=== PATIENT | female | born 1980 | race Caucasian/White ===

== ENCOUNTER 2025-06-15 13:31 | Emergency (ER) | payer OTHER, SELFPAY ==
[2025-06-15 13:37] VITALS: BP 139/76
[2025-06-15 14:00] VITALS: BP 138/88
--- NOTE | 2025-06-15 14:19 | ED.GENMED ---
History of Present Illness
General
Chief Complaint: Change in Mental Status
Source: patient
Exam Limitations: none
Time Seen by Provider: 06/15/25 14:11
History of Present Illness
History of Present Illness:
See MDM
Past History
Past History
ED Past Medical History: Asthma, HTN, Hypercholesterolemia, Psychiatric (anxiety, pseudoseizures, bipolar disorder, movement disorder) and Other (Irritable bowel syndrome, migraine headaches, kidney stones); Negative CAD, Cancer or CHF
ED Past Surgical History: Gynecological (Tubal ligation, breast reduction), Tonsilectomy and Other (abd cellulits surgey)
Social History
Tobacco: Smoker
Alcohol: None
Drug: None
Living: with family
Employment: Not employed
Family History
Family History: Hypertension
Phy Exam
Physical Exam
Physical Exam:
See MDM
Course
Orders/Labs/Results
Orders:
Orders
06/15/25 14:18
Diphenhydramine [Benadryl] 12.5 mg IV NOW STA
Haloperidol Lactate [Haldol] 2 mg IM NOW STA
06/15/25 14:19
Complete Blood Count/With Diff Urgent
Comprehensive Metabolic Panel Urgent
Magnesium Urgent
06/15/25 14:23
Electrocardiogram (*1) Urgent
Reason for Study: QTc Monitoring
EKG- Treatment ONCE
Abnormal Lab Results
06/15/25
14:19
Hgb 8.1 L g/dL
(12.0-16.0)
Hct 29.6 L %
(37.0-47.0)
MCV 61.3 L fL
(81.0-99.0)
MCH 16.8 L pg
(27.0-31.0)
MCHC 27.4 L g/dL
(33.0-37.0)
RDW 24.3 H %
(11.5-14.5)
Absolute Lymphs (auto) 0.9 L 10^3/uL
(1.2-3.4)
Neutrophils % 81.1 H %
(42.2-75.2)
Lymphocytes % 12.9 L %
(20.5-51.1)
06/15/25 14:19
06/15/25 14:19
Vital Signs
Initial and Last Documented VS:
Initial Vital Signs
Temp
98.4 F
06/15/25 13:34
Last Documented Vital Signs
Temp Pulse Resp BP Pulse Ox
98.4 F 98 17 139/81 100
06/15/25 13:34 06/15/25 16:00 06/15/25 16:00 06/15/25 16:00 06/15/25 16:00
MDM/Problems Addressed
Differential Diagnosis Includes:
Note:
CHIEF COMPLAINT(S)
Muscle cramps and neck tremors.
HISTORY OF PRESENT ILLNESS
The patient is a 44-year-old female who presents with complaints of muscle cramping and neck tremors. Patient is coming from [facility]. This issue has been persistent for approximately two years. The patient reports that
her muscles cramp around the neck, which then start shaking and remain tense for an extended period. The patient has not been taking any specific medications to address these symptoms; however, she notes some relief with the administration of
Haldol, particularly in shot form. She also mentions random triggers for her symptoms despite consistent medication timings. Today, she experienced similar symptoms, prompting her visit. Patient states she has had negative workup in the past and
believes that a trigger is not receiving her routine medications and time at nursing home.
PHYSICAL EXAM
General: Alert, no acute distress.
Skin: Warm, dry.
Head: Normocephalic, atraumatic
Neck: Appears supple, trachea midline.
Eyes, Ears, Nose, Mouth, and Throat: Dry mucous membranes
Cardiovascular: No signs of cyanosis. Mild tachycardia
Respiratory: Respirations are non-labored.
Abdomen: Non-distended
Musculoskeletal: No deformities
Neurological: No focal neurological deficit observed. Patient appears tremulous
Psychiatric: Mildly anxious
PLAN
- Administer 12.5 mg of diphenhydramine (Benadryl) intravenously to mitigate potential drowsy effects.
- Administer Haldol in an injectable form intramuscularly.
- Conduct basic blood work to rule out electrolyte imbalances that may contribute to cramping.
- Continue fluids started by EMS
DIFFERENTIAL DIAGNOSIS
The Differential Diagnosis includes, in no particular order and is not limited to:
- Muscle contractions
- Cervical dystonia
- Hypocalcemia
- Hypokalemia
- Hyperthyroidism
- Tremors
- Electrolyte imbalance
- Neurological disorder
- Tardive dyskinesia
- Drug-induced movement disorder
SUMMARY OF ENCOUNTER
The patient presented to the emergency department with a two-year history of muscle cramping and neck tremors, exacerbated by inconsistent medication administration. The symptom manifestations are unpredictable, and todays episode prompted the
visit. Management focused on administering medications and conducting basic blood work for further investigation.
EMERGENCY TREATMENTS ADMINISTERED
- 12.5 mg of diphenhydramine (Benadryl) administered intravenously.
- Haldol administered in an injectable form intramuscularly.
FOLLOW-UP INSTRUCTIONS
Follow-up as necessary depending on lab results and symptom persistence.
MEDICAL DECISION MAKING
-Complexity of Data Reviewed: Chronic conditions affecting care with probable electrolyte imbalance, possible dystonia, and medication administration challenges over the past two years.
-Data:
Category 1:
- Basic lab work ordered to rule out electrolyte imbalances contributing to muscle symptoms.
-Risk:
- Prescription medication was administered as a therapeutic measure and to assess symptom reduction.
DIAGNOSIS
- Cervical dystonia (ICD-10: G24.3)
- Muscle spasm (ICD-10: M62.830)
- Tremor (ICD-10: R25.1)
CARE-UPDATE
06/15/25 - 14:53
Patients hemoglobin level is 8.1 g/dL, indicating anemia. Patient acknowledges awareness of this condition and prior discussions about potential need for hysterectomy as part of future management. Previous evaluations for anemia have been conducted.
Further monitoring and follow-up are required to assess current status and possible surgical intervention timing.
SUMMARY OF ENCOUNTER
The patient presented with muscle cramps and neck tremors attributed to pseudo-seizure activity. Having not been managed with consistent medication use, she requested haloperidol (Haldol) and diphenhydramine (Benadryl). The patient reported
improvement after receiving diphenhydramine intravenously and haloperidol intramuscularly. Extensive review of the patients condition revealed no significant electrolyte abnormalities. The patient was stabilized and deemed fit for discharge. Anemia
monitoring and re-check were discussed.
DISPOSITION
Discharge to nursing home.
ASSESSMENT
The patient appears to have symptoms consistent with cervical dystonia and muscle spasms associated with possible pseudo-seizure activity.
EMERGENCY TREATMENTS ADMINISTERED
12.5 mg of diphenhydramine intravenously and haloperidol intramuscularly were administered.
PLAN
The plan includes further anemia monitoring and periodic re-evaluation.
INDEPENDENT REVIEW OF LABS AND INTERPRETATION OF TESTS
My independent review of the blood work shows no significant electrolyte abnormalities.
FOLLOW-UP INSTRUCTIONS
Follow up as necessary, depending on lab results and persistent symptoms, and reassess anemia status.
MEDICATION RECONCILIATION
Diphenhydramine and haloperidol were administered during the visit.
MEDICAL DECISION MAKING
-Complexity of Data Reviewed: Chronic conditions affecting care include cervical dystonia, muscle spasms, tremor, and the patients reported pseudo-seizure activity. Differential diagnosis includes muscle contractions, cervical dystonia,
hypocalcemia, hypokalemia, hyperthyroidism, tremors, electrolyte imbalance, neurological disorder, tardive dyskinesia, and drug-induced movement disorder.
-Data:
Category 1: Blood work to rule out electrolyte imbalances.
-Risk: Prescription medication was administered to assess symptom reduction.
DIAGNOSIS
- Cervical dystonia (ICD-10: G24.3)
- Muscle spasm (ICD-10: M62.830)
- Tremor (ICD-10: R25.1)
*Pulse Oximetry
SaO2: 97
Oxygen Mode of Delivery: Room air
Patient hypoxic: no
*Critical Care Note
Total Time (30-74mins, 75-104mins- exclusive of procedures): Not Applicable
ED Attending Note
-
Portions of this chart may have been created with voice recognition software.� Occasional wrong word or��sound alike� substitutions may have occurred due to the inherent limitations of voice recognition software.
Discharge Plan
Departure
Patient Disposition: Snf
Date of Disposition: 06/15/25
Time of Disposition: 16:18
Patient with high blood pressure during this ER visit?: No
Discharge Problem:
Muscle spasm
Prescriptions:
No Action
dextroamphetamine-amphetamine [Adderall XR] 20 MG capsule,extended release 24hr
20 mg PO BID
fluticasone propion-salmeterol [Advair Diskus] 1 DISK blister with device
1 puff inhalation BID
topiramate 100 MG tablet
300 mg PO DAILY
fluoxetine [Prozac] 20 MG capsule
40 mg PO QPM
albuterol sulfate 1 PUFF HFA aerosol inhaler
2 puff inhalation R Q4HPRN PRN (Reason: sob)
tiotropium bromide [Spiriva with HandiHaler] 18 MCG capsule, w/inhalation device
18 mcg inhalation R DAILY
valacyclovir [Valtrex] 500 MG tablet
1,000 mg PO DAILY
hydrocodone-acetaminophen 1 TABLET tablet
1 tab PO Q4HPRN PRN (Reason: pain) Qty: 15 0RF
hydrocodone-acetaminophen 1 TABLET tablet
1 tab PO Q4HPRN PRN (Reason: severe pain) Qty: 8 0RF
penicillin V potassium 500 MG tablet
500 mg PO Q6 Qty: 39 0RF
Referrals:
[facility] [Family Provider, General]
Activity Restrictions/Additional Instructions:
Cathie Parra is medically stable and cleared for incarceration.
Interventions
Interventions:
*Risk Screen - Suicide Last Done: 06/15/25 13:38
*General Assessment Last Done: 06/15/25 13:38
*Neglect/Abuse Screening Last Done: 06/15/25 13:38
*ED COVID-19 Vaccine History Last Done: 06/15/25 13:38
*ED Influenza Vaccine History Last Done: 06/15/25 13:38
ED- Pulmonary Assessment Last Done: 06/15/25 13:45
ED- Neurological Assessment Last Done: 06/15/25 13:45
ED- Cardiac Assessment Last Done: 06/15/25 13:45
Discharge Date and Time
Print Language: SAMOAN
[2025-06-15] MEDS: HALDOL 2 MG IM (14:23)
[2025-06-15] MEDS: BENADRYL 12.5 MG IV (14:23)
[2025-06-15 14:42] LABS: Hematocrit 29.6 % (37.0-47.0); Hemoglobin 8.1 g/dL (12.0-16.0); Mean Corp Hgb Conc. 27.4 g/dL (33.0-37.0); Mean Corpuscular Volume 61.3 fL (81.0-99.0); Nucleated Red Blood Cells % 0 %; Platelet Count 330 10^3/uL (130-400); Red Cell Dist. Width 24.3 % (11.5-14.5)
[2025-06-15 15:00] VITALS: BP 113/62
[2025-06-15 15:04] LABS: ALT (SGPT) 13 U/L (0-35); AST (SGOT) 34 U/L (14-36); Albumin 4.6 g/dl (3.5-5.0); Alkaline Phosphatase 83 U/L (38-126); Blood Urea Nitrogen 15 mg/dl (7-17); Calcium 9.6 mg/dl (8.4-10.2); Carbon Dioxide 25 mmol/L (22-30); Chloride 105 mmol/L (98-107); Glucose 93 mg/dl (70-99); Magnesium 2.0 mg/dl (1.6-2.3); Potassium 4.5 mmol/L (3.5-5.1); Sodium 138 mmol/L (135-145); Total Protein 7.8 g/dl (6.3-8.2); eGFR > 60.00
[2025-06-15 16:00] VITALS: BP 139/81
== END 2025-06-15 16:24 ==
LOC: EMR 13:31
PROVIDERS: EMERGENCY PHYSICIAN Student in an Organized Health Care Education/Training Program
DX: M62.838 Other muscle spasm (principal); G24.3 Spasmodic torticollis; D64.9 Anemia, unspecified; E78.00 Pure hypercholesterolemia, unspecified; I10 Essential (primary) hypertension; F17.200 Nicotine dependence, unspecified, uncomplicated; J45.909 Unspecified asthma, uncomplicated
CPT/HCPCS: 99284; 96374; 96372; 80053; 83735; 85025; 93005